=== PATIENT | male | born 1995 | race Caucasian/White ===

== ENCOUNTER 2016-10-11 17:16 | Observation (INO) | payer BC, OTHER ==
[~2016-10-11] VITALS: Ht 170.2 cm; Wt 93.0 kg
[2016-10-11 17:28] VITALS: BP 146/64; PULSE 87; RESP 18; TEMP 98.3; O2SAT 100
--- NOTE | 2016-10-11 17:43 | PD ---
HPI . Penile swelling Chief Complaint: Penile swelling Time Seen by Provider: 17:34 Travel History International Travel<30 days: No Contact w/Intl Traveler<30days: No History of Present Illness HPI Patient presents with chief complaint of a swollen penis. The patient is not circumcised. He states that he was taking a shower this afternoon and retracted the foreskin to wash. He was then unable to reduce foreskin. The problem is acute and constant. He subsequently presented to us for treatment. He rates the pain 8/10. [facility] Social History Tobacco Use: No Allergies-Medications (Allergen,Severity, Reaction): Coded Allergies: No Known Allergies (Unverified , 10/11/16) Review of Systems Except as stated in HPI: all other systems reviewed are Neg Physical Exam Narrative GENERAL: Awake and alert and in no acute distress. SKIN: Warm and dry. HEAD: Atraumatic. Normocephalic. EYES: Pupils equal and round. NECK: Trachea midline. CARDIOVASCULAR: Regular rate and rhythm. RESPIRATORY: No accessory muscle use. : Foreskin is retracted and edematous. MUSCULOSKELETAL: No obvious deformities. No edema. NEUROLOGICAL: Awake and alert. No obvious cranial nerve deficits. Motor grossly within normal limits. Normal speech. PSYCHIATRIC: Appropriate mood and affect; insight and judgment normal. Data Data Last Documented VS Vital Signs Date Time Temp Pulse Resp B/P (MAP) Pulse Ox O2 Delivery O2 Flow Rate FiO2 10/11/16 17:28 98.3 87 18 146/64 (91) 100 Room Air Orders Orders ^ Saline Lock (10/11/16 17:37) Consent (10/11/16 17:37) Morphine Inj (Morphine Inj) (10/11/16 17:45) Ondansetron Inj (Zofran Inj) (10/11/16 17:45) Propofol 200 Mg/20 Ml Inj (Diprivan 200 (10/11/16 18:30) Fentanyl Inj (Fentanyl Inj) (10/11/16 19:00) Fentanyl Inj (Fentanyl Inj) (10/11/16 19:15) MDM Medical Decision Making Medical Screen Exam Complete: Yes Emergency Medical Condition: Yes Differential Diagnosis Differential diagnosis of penile symptoms includes but is not limited to UTI, gonorrhea, chlamydia, balanitis, phimosis, paraphimosis Narrative Course This patient presents with the acute onset of paraphimosis. An IV will be started and he will be given morphine. Preparations will be made for conscious sedation as needed. Procedures Procedure Narrative After the risks and benefits were discussed the following procedure was performed: MODERATE SEDATION: The patient was placed on a gas meter prover and pulse oximetry. An ambu bag and suction was immediately available at bedside. The patient was monitored by the nurse and respiratory therapist. Oxygen saturation, heart rate and blood pressure were monitored. Procedural sedation was acheived using propofol 200 mg. The patient was observed until awake and alert. Procedural Sedation time in attendance was 45 minutes. The patient actually was never completely sedated. He was awake and talking to us the whole time. REDUCTION OF PARAPHIMOSIS: The patient was initially treated with morphine, 8 mg IV followed by a total of propofol, 200 mg IV. The patient never went to sleep. Continuous pressure was held on the glans penis and foreskin for about 45 minutes. The paraphimosis could not be reduced in the emergency department. Physician Communication Physician Communication Dr. Foreman will take the patient to the OR. Diagnosis Primary Impression: Paraphimosis Condition: Stable Nazia Leonard MD Oct 11, 2016 17:43
[2016-10-11] MEDS ORDERED: MORPHINE SULFATE 8 MG/ML INJ IV PUSH ONE (17:45)
[2016-10-11] MEDS ORDERED: ONDANSETRON HCL 4 MG/2 ML VIAL IV PUSH ONE (17:45)
[2016-10-11] MEDS ORDERED: PROPOFOL 200 MG/20 ML AMP IV ONE (18:30)
[2016-10-11 18:42] VITALS: O2SAT 99
[2016-10-11 19:00] VITALS: BP 135/78; PULSE 86; RESP 20; O2SAT 100
[2016-10-11] MEDS ORDERED: fentaNYL CITRATE 250 MCG/5 ML AMP IV PUSH ONE (19:00)
[2016-10-11 19:54] LABS: AUTOMATED NEUTROPHIL # 11.2 TH/MM3 (1.8-7.7); BASOPHIL # 0.1 TH/MM3 (0-0.2); BASOPHIL % 0.5 % (0.0-2.0); EOSINOPHIL # 0.6 TH/MM3 (0-0.4); EOSINOPHIL % 3.8 % (0.0-4.0); HEMATOCRIT 39.8 % (39.0-51.0); HEMO FLAGS DIFF FINAL; LYMPH % 14.1 % (9.0-44.0); LYMPHOCYTE # 2.1 TH/MM3 (1.0-4.8); MEAN CELL VOLUME 84.6 FL (80.0-100.0); MEAN CORPUSCULAR HEMOGLOBIN 28.5 PG (27.0-34.0); MEAN CORPUSCULAR HGB CONC 33.7 % (32.0-36.0); MONO % 4.3 % (0.0-8.0); NEUT % 77.3 % (16.0-70.0); PLATELET COUNT 250 TH/MM3 (150-450); RED CELL DISTRIBUTION WIDTH 11.8 % (11.6-17.2); WHITE BLOOD COUNT 14.6 TH/MM3 (4.0-11.0)
[2016-10-11 20:02] LABS: POTASSIUM 3.3 MEQ/L (3.5-5.1)
[2016-10-11 20:05] LABS: BICARBONATE 23.2 MEQ/L (21.0-32.0)
[2016-10-11 20:06] LABS: APTT (PATIENT) 27.9 SEC (24.3-30.1)
[2016-10-11] MEDS ORDERED: BACITRACIN TOP OINT 15 GM TUBE ONE (20:18)
[2016-10-11] MEDS ORDERED: LIDOCAINE HCL 2% 50 ML VIAL ONE (20:18)
[2016-10-11] MEDS ORDERED: BUPIVACAINE HCL PF 0.25% 30 ML VIAL ONE (20:18)
--- NOTE | 2016-10-11 20:21 | HHI.HP ---
[facility] Service Urology Primary Care Physician Manfred Jorge MD Admission Diagnosis paraphimosis Diagnoses: Chief Complaint: Penile pain and swelling History of Present Illness 20 year-old gentleman who presented to the emergency room complaining of penile pain and swelling that developed approximately 2 hours prior to ER evaluation. Patient reports that he was taking a shower and retract his foreskin and was subsequently unable to pull the skin back. Upon ER evaluation, the paraphimosis was identified and an attempt was made by the ER physician to reduce the paraphimosis under IV sedation without success. A urology consult was thus placed for further management. At the time of consultation the patient denied a previous history of the present problem. He denied any significant past urologic or other medical history. Review of Systems Constitutional: DENIES: Fever, Night Sweats Cardiovascular: DENIES: Palpitations Gastrointestinal: DENIES: Abdominal pain Genitourinary: DENIES: Hematuria, Dysuria Musculoskeletal: DENIES: Joint pain Neurologic: DENIES: Headache Except as stated in HPI: all other systems reviewed are Neg Past Family Social History Past Medical History Denies Past Surgical History Denies Reported Medications None Allergies: Coded Allergies: No Known Allergies (Unverified , 10/11/16) Active Ordered Medications Refer to EMR Family History Reviewed and noncontributory Social History Denies tobacco, alcohol or intravenous drug abuse Physical Exam Vital Signs Date Time Temp Pulse Resp B/P (MAP) Pulse Ox O2 Delivery O2 Flow Rate FiO2 10/11/16 19:15 16 10/11/16 17:28 98.3 87 18 146/64 (91) 100 Room Air Physical Exam GENERAL: This is a well-nourished, well-developed patient, in no apparent distress. SKIN: No rashes, ecchymoses or lesions. Cool and dry. HEAD: Atraumatic. Normocephalic. No temporal or scalp tenderness. EYES: Pupils equal round and reactive. Extraocular motions intact. No scleral icterus. No injection or drainage. ENT: Nose without bleeding, purulent drainage or septal hematoma. Throat without erythema, tonsillar hypertrophy or exudate. Uvula midline. Airway patent. NECK: Trachea midline. No JVD or lymphadenopathy. Supple, nontender, no meningeal signs. CARDIOVASCULAR: Regular rate and rhythm without murmurs, gallops, or rubs. RESPIRATORY: Clear to auscultation. Breath sounds equal bilaterally. No wheezes , rales, or rhonchi. GASTROINTESTINAL: Abdomen soft, non-tender, nondistended. No hepato-splenomegaly , or palpable masses. No guarding. GENITOURINARY: MUSCULOSKELETAL: Extremities without clubbing, cyanosis, or edema. No joint tenderness, effusion, or edema noted. No calf tenderness. Negative Homans sign bilaterally. NEUROLOGICAL: Awake and alert. Cranial nerves II through XII intact. Motor and sensory grossly within normal limits. Five out of 5 muscle strength in all muscle groups. Normal speech. Lab results reviewed: Yes Laboratory Tests Test 10/11/16 19:37 White Blood Count 14.6 Red Blood Count 4.70 Hemoglobin 13.4 Hematocrit 39.8 Mean Corpuscular Volume 84.6 Mean Corpuscular Hemoglobin 28.5 Mean Corpuscular Hemoglobin Concent 33.7 Red Cell Distribution Width 11.8 Platelet Count 250 Mean Platelet Volume 8.5 Neutrophils (%) (Auto) 77.3 Lymphocytes (%) (Auto) 14.1 Monocytes (%) (Auto) 4.3 Eosinophils (%) (Auto) 3.8 Basophils (%) (Auto) 0.5 Neutrophils # (Auto) 11.2 Lymphocytes # (Auto) 2.1 Monocytes # (Auto) 0.6 Eosinophils # (Auto) 0.6 Basophils # (Auto) 0.1 CBC Comment DIFF FINAL Differential Comment Prothrombin Time 11.0 Prothromb Time International Ratio 1.0 Activated Partial Thromboplast Time 27.9 Blood Urea Nitrogen 12 Creatinine 0.91 Random Glucose 96 Calcium Level 8.1 Sodium Level 139 Potassium Level 3.3 Chloride Level 107 Carbon Dioxide Level 23.2 Anion Gap 9 Estimat Glomerular Filtration Rate 105 Result Diagram: 10/11/16193610/11/161936 Caprini VTE Risk Assessment Caprini VTE Risk Assessment: No/Low Risk (score <= 1) Caprini Risk Assessment Model Point Value = 1 Point Value = 2 Point Value = 3 Point Value = 5 Age 41-60 Minor surgery BMI > 25 kg/m2 Swollen legs Varicose veins or History of unexplained or recurrent spontaneous Oral contraceptives or hormone replacement Sepsis (< 1 month) Serious lung disease, including pneumonia (< 1 month) Abnormal pulmonary function Acute myocardial infarction Congestive heart failure (< 1 month) History of inflammatory bowel disease Medical patient at bed rest Age 61-74 Arthroscopic surgery Major open surgery (> 45 min) Laparoscopic surgery (> 45 min) Malignancy Confined to bed (> 72 hours) Immobilizing plaster cast Central venous access Age >= 75 History of VTE Family history of VTE Factor V Leiden Prothrombin [id number] Lupus anticoagulant Anticardiolipin antibodies Elevated serum homocysteine Heparin-induced thrombocytopenia Other congenital or acquired thrombophilia Stroke (< 1 month) Elective arthroplasty Hip, pelvis, or leg fracture Acute spinal cord injury (< 1 month) Prophylaxis Regimen Total Risk Factor Score Risk Level Prophylaxis Regimen 0-1 Low Early ambulation 2 Moderate Order ONE of the following: *Sequential Compression Device (SCD) *Heparin 5000 units SQ BID 3-4 Higher Order ONE of the following medications: *Heparin 5000 units SQ TID *Enoxaparin/Lovenox 40 mg SQ daily (WT < 150 kg, CrCl > 30 mL/min) *Enoxaparin/Lovenox 30 mg SQ daily (WT < 150 kg, CrCl > 10-29 mL/min) *Enoxaparin/Lovenox 30 mg SQ BID (WT < 150 kg, CrCl > 30 mL/min) AND/OR *Sequential Compression Device (SCD) 5 or more Highest Order ONE of the following medications: *Heparin 5000 units SQ TID (Preferred with Epidurals) *Enoxaparin/Lovenox 40 mg SQ daily (WT < 150 kg, CrCl > 30 mL/min) *Enoxaparin/Lovenox 30 mg SQ daily (WT < 150 kg, CrCl > 10-29 mL/min) *Enoxaparin/Lovenox 30 mg SQ BID (WT < 150 kg, CrCl > 30 mL/min) AND *Sequential Compression Device (SCD) Assessment and Plan Assessment and Plan UROLOGIC IMPRESSION: Paraphimosis PLAN: #1 Keep pt npo #2 Bring to the OR this evening for reduction of paraphimosis under general anesthesia #3 Will eventually require outpatient circumcision Victorino Foreman MD Oct 11, 2016 20:21
[2016-10-11] MEDS ORDERED: CHLORHEXIDINE GLUCONATE 2 % 1 PACK (2 CLOTHS) TOPICAL PRN (20:45)
[2016-10-11] MEDS ORDERED: LACTATED RINGER'S 1000 ML IV PRN (20:45)
[2016-10-11] MEDS ORDERED: METOPROLOL TARTRATE 25 MG TAB PO PRN (20:45)
[2016-10-11] MEDS ORDERED: SODIUM CHLORID 0.9% 500 ML IV PRN (20:45)
[2016-10-11] MEDS ORDERED: POVIDONE IODINE 5% (ANTISEPSIS KIT) 4 APPLICATIONS EACH NARE PRN (20:45)
[2016-10-11] MEDS ORDERED: INSULIN HUMAN REGULAR 1,000 UNITS/10 ML VIAL SQ PRN (20:45)
--- NOTE | 2016-10-11 20:57 | PD.OP ---
Operative Report Date of Surgery: Oct 11, 2016 Preoperative Diagnosis: (1) Paraphimosis Postoperative Diagnosis: (1) Paraphimosis Procedure: Reduction of paraphimosis Anesthesia: General Surgeon: Victorino Foreman Biometry Teacher(s): None Operation and Findings: Indication for procedure: Case of a pleasant 20-year-old gentleman who presented to the emergency room with acute onset paraphimosis. Attempts by the emergency room physician to reduce the phimosis were unsuccessful and patient is now brought to the operating room suite for reduction under general anesthesia. Procedure in detail: Patient was brought to the operating room suite and placed supine on the OR table. He was then placed under general anesthesia. Next the penile shaft was manually compressed for approximately 60 seconds to reduce the edema and subsequent manual reduction of the paraphimosis was accomplished. Neosporin ointment was applied to the glans penis and foreskin. The patient tolerated the procedure without complications and was transferred to the PACU in satisfactory condition. Victorino Foreman MD Oct 11, 2016 20:57
[2016-10-11] MEDS ORDERED: PERC5TAB12 PO (20:58)
[2016-10-11 21:01] VITALS: PULSE 85
[2016-10-11] MEDS ORDERED: fentaNYL CITRATE 250 MCG/5 ML AMP ONE (21:05)
[2016-10-11] MEDS ORDERED: ONDANSETRON HCL 4 MG/2 ML VIAL IV PUSH PRN (21:15)
[2016-10-11] MEDS ORDERED: oxyCODONE/ACETAMINOPHEN 5 MG/325 MG TAB PO PRN (21:15)
[2016-10-11 21:30] VITALS: BP 113/60; PULSE 80; RESP 16; TEMP 98.4; O2SAT 100
--- NOTE | 2016-10-12 17:36 | EKG ---
Date Performed: 10/11/2016 Time Performed: 19:40:16 PTAGE: 20 years EKG: Sinus rhythm NORMAL ECG NO PREVIOUS TRACING DOCTOR: Bonilla Rodriguez Interpretating Date/Time 10/12/2016 17:34:12
== END 2016-10-11 21:30 | disposition home or self-care (01) ==
LOC: PHED 17:16 → PHEDA 19:18
PROVIDERS: ADMIT Urology; ATTEND Urology
DX: N47.2 Paraphimosis (principal); J45.909 Unspecified asthma, uncomplicated
CPT/HCPCS: 00920; 54450; 80048; 85025; 85610; 85730; 86850; 86900; 86901; 93005; 94770; 96374; 96375; 99152; 99153; 99285; G0378; J2270; J2405; J3010; J7120